=== PATIENT | female | born 2000 | race Caucasian/White ===

== ENCOUNTER 2018-01-10 15:12 | Emergency (ER) | payer BC, SELFPAY ==
[2018-01-10 15:20] VITALS: BP 97/62; PULSE 98; RESP 14; TEMP 37.1; O2SAT 99
--- NOTE | 2018-01-10 15:47 | ED.GENADUL_ITS ---
Disposition Clinical Impression: Injected eye, left, Bacterial conjunctivitis of left eye Disposition: HOME Condition: Stable Instructions: Conjunctivitis (ED) Additional Instructions: Continue to use erythromycin in the right eye. Hold on any further use of erythromycin in your left eye. Continue to flush the left eye with water and apply cool compresses over eye several times daily. You should receive a call from care management regarding follow-up with [facility] within the next week. Return to the emergency department with any worsening or new concerning symptoms. Medical Decision Making - Medical Decision Making 17-year-old female with recent diagnosis of bacterial conjunctivitis on erythromycin who presents for worsening of left eye symptoms since yesterday. She admits to near resolution of symptoms in the right eye. She has been placing erythromycin ointment in both eyes. Eye exam notes right eye to be clear without injection, discharge or eyelid edema or erythema. Left eye is noted to have significant injection, tearing, white discharge as well as mild to moderate upper and lower edema, erythema and scaling. Slit- lamp exam on left was negative for pus or blood or foreign body. She denies any injury to the eye or foreign body sensation so will hold on fluorscein stain. I discussed with patient as she has a history of eczema, there is a consideration of a dermatitis of her eyelid causing her symptoms. However this does not explain the worsening injection of the eye. I recommend that she stop the erythromycin ointment in her left eye. Will flush the left eye with a Patric's lens with 1 L normal saline. I also discussed the possibility of iritis, or worsening bacterial conjunctivitis. Will have patient follow-up with [facility] early this week for reevaluation and return here if worse. 1650: Patient tolerated Patric's lens and saline and she feels slightly better. She states she feels good to go home. Patient instructed to continue flushing with water and place cool compress over eye several times daily. Will place patient on care management list to arrange for follow-up appointment with [facility] early this week. Instructed to return if any concerns. History of Present Illness - General Chief complaint: EyeProblem Stated complaint: EYE PROBLEM Time Seen by Provider: 01/10/18 15:13 Source: patient Mode of arrival: ambulatory Limitations: no limitations - History of Present Illness Initial comments: Patient is a 17-year-old female presents to the ER with complaint of recent diagnosis of bacterial conjunctivitis in both eyes, now with improvement in right eye but worsening in left eye. She saw her primary care doctor 2 days ago and given erythromycin ointment which she has been using with complete relief in her right eye and worsening of redness, pain, irritation and eyelid redness and swelling since yesterday. She has been using the erythromycin ointment in both eyes as directed. She denies any new injury. She denies blurry vision. She denies headache or dizziness. - Related Data Hydroxyzine HCl 25 mg PO DAILY #60 tab 02/17/13 Triamcinolone Acetonide 1 liliana TP BID #15 gm 12/13/16 Etonogestrel [Nexplanon] 68 mg SQ ONCE #1 implant 01/03/17 Dupilumab [Dupixent] 300 mg SQ ONCE #2 syringe 10/22/17 Erythromycin Base [Erythromycin] 0.5 inch OU TID #1 tube 01/08/18 Tacrolimus [Protopic 0.03%] 30 gm TP 01/10/18 Allergies Allergy/AdvReac Type Severity Reaction Status Date / Time shellfish derived Allergy Unknown Unverified 01/10/18 15:35 No Known Drug Allergies Allergy Unverified 01/10/18 15:35 dust mites Allergy Itching, Uncoded 01/10/18 15:35 sneezing Review of Systems Constitutional: denies: chills, fever Eyes: eye pain, eye discharge. denies: vision change ENT: denies: ear pain, throat pain, dental pain Respiratory: denies: cough, shortness of breath Cardiovascular: denies: chest pain, dyspnea on exertion Gastrointestinal: denies: abdominal pain, nausea, vomiting Genitourinary: denies: urgency, dysuria, frequency Musculoskeletal: denies: back pain Skin: denies: rash, lesions Neurological: denies: headache, weakness, numbness Past Medical History - Past Medical History eczema Surgical history: no surgical history - Social History Smoking status: never smoker Alcohol use: none Drug use: none General Exam - General Limitations: no limitations General appearance: alert, in no apparent distress - Eye Eye exam: Present: PERRL, EOMI, other (Left eye conjunctival injection. Left upper and lower eyelid with edema, erythema, scaling. White discharge in left eye noted. No foreign body noted with everting left upper eyelid. No blood or pus noted in anterior chamber with slit-lamp exam. Right eye without injection , discharge or eyelid edema or erythema.) - ENT ENT exam: Present: mucous membranes moist - Respiratory Respiratory exam: Absent: respiratory distress - Cardiovascular Cardiovascular Exam: Present: regular rate - Neurological Exam Neurological exam: Present: alert, oriented X3 - Psychiatric Psychiatric exam: Present: normal affect - Skin Skin exam: Present: warm, dry, intact Course Vital Signs - 24 hr 01/10/18 15:20 Temperature 98.8 F Pulse 98 H Respiratory 14 Rate Blood Pressure 97/62 Pulse Oximetry 99
[2018-01-10 17:05] VITALS: BP 116/81; PULSE 87; RESP 16; O2SAT 98
--- NOTE | 2018-01-12 10:19 | CMPROGNOTE_ITS ---
Care Management Progress Note 01/12-Dr. Veronica requested assistance with a [facility] Emergency Department appt in one week for conjunctivitis, infection. Referral, demographics, and provider note faxed to [facility] this am.
== END 2018-01-10 17:15 | disposition home or self-care (01) ==
PROVIDERS: Emergency Provider Physician Assistant; PCP Pediatrics
DX: H10.022 Other mucopurulent conjunctivitis, left eye (principal); H57.8 Other specified disorders of eye and adnexa
CPT/HCPCS: 99284

== ENCOUNTER 2018-11-24 23:56 | Emergency (ER) | payer BC, SELFPAY ==
[2018-11-25 00:01] VITALS: BP 127/87; PULSE 101; RESP 20; TEMP 36.8; O2SAT 99
--- NOTE | 2018-11-25 00:20 | ED.GENADUL_ITS ---
Discharge Plan Disposition Patient Disposition: HOME Condition: Stable Discharge Details Chief Complaint: Abd Prob Clinical Impression: Abdominal pain Primary Care Provider: Abbie Goldberg V ED Provider: Jona Wright Home Meds and New Rx's Prescriptions: No Action hydroxyzine HCl 10 MG tablet 25 mg PO DAILY Qty: 60 RF: 3 Nexplanon 68 MG implant 68 mg SQ ONCE Qty: 1 RF: 0 Dupixent 300 MG/2 ML syringe 300 mg SQ ONCE Qty: 2 RF: 0 tacrolimus [Protopic] 30 GM ointment 30 gm Topical RF: 0 Discharge Instructions Additional Instructions: your cat scan did not show any concerning findings take the zofran (ondansetron) as needed every 6 hours for nausea/vomit if symptoms continue in a week see your primary care provider if you feel you are becoming more ill, have severe worsening pain or persistent vomit return to the emergency department Stand Alone Forms: Work Release Medical Decision Making 17 yo female with hx of eczema, no prior surgeries, comes in with abdominal pain. She states for a few days she has had no appetite and general abdominal discomfort and tonight had severe pain in the right lower abdomen. Denies vomit but has had nausea. she has pain in the rlq with guarding. no vaginal bleeding or d/c. will obtain lab work and ct imaging to eval for appendicitis, and also ovarian cyst. labs and imaging unremarkable, her pain is significantly better and only has mild pain now, tolerating PO. Will d/c home and return precautions given Differential Diagnosis ovarian cyst, appendicitis Imaging Data Radiologic Study: Attestation: I personally reviewed and interpreted this imaging study as follows: Imaging: CT Scan Radiologist's impression: no acute findings Lab Data Lab results reviewed: Yes I reviewed the patient's lab results. HPI General Mode of arrival: ambulatory . Date/Time Provider Initiated Documentation: 11/24/18 23:56 . Limitations to Documentation: no limitations . Information obtained by: patient . History of Present Illness 17 year old F presents to the emergency department with the chief complaint of abdominal pain, described as moderate, Quality is described as stabbing, and is localized to the abdomen. Patient reports no radiation. Patient started experiencing this hour(s) (5) and it has been constant. No relieving factors improve symptom(s), No exacerbating factors reported . Patient notes nausea/vomiting. Patient did receive the following treatments prior to arrival, none Related Data Home Medications Medication Instructions Recorded Confirmed hydroxyzine HCl 25 mg PO DAILY #60 tab 02/17/13 11/25/18 Nexplanon 68 mg SQ ONCE #1 implant 01/03/17 11/25/18 Dupixent 300 mg SQ ONCE #2 syringe 10/22/17 11/25/18 tacrolimus [Protopic] 30 gm TOPICAL 01/10/18 05/22/18 Allergies Allergy/AdvReac Type Severity Reaction Status Date / Time shellfish derived Allergy Unknown Unverified 11/25/18 00:04 No Known Drug Allergies Allergy Unverified 11/25/18 00:04 dust mites Allergy Itching, Uncoded 11/25/18 00:04 sneezing General Stated Complaint: Abd Prob JASMYNE: 3 Review of Systems Review of Systems All systems reviewed & are unremarkable except as noted in HPI and below Constitutional Denies chills, Denies fever(s) and Denies weakness Cardiovascular Denies chest pain and Denies dyspnea Respiratory Denies dyspnea Gastrointestinal Denies nausea Integumentary/Breasts Denies rash Neurologic Denies weakness PFSH Medical History Eczema Sty, external Surgical History Tooth extraction Family History Grandparent Essential hypertension Personal history of malignant neoplasm Hyperlipidemia Social History Smoking/Tobacco Use Status: Never Drug use: Never Substance use type: does not use Do you feel safe in your relationship?: Yes Exam Const General: no acute distress Orientation: alert HENMT Head: normal to inspection Ears: external ears normal General nose exam: external nose normal Mouth: moist mucous membranes Eyes General: appearance normal, both eyes and all related structures Neck Neck: normal visual inspection Resp Effort & Inspection: normal respiratory effort and able to speak in complete sentences Cardio Rate: regular rate GI Palpation: soft Skin General skin exam: no rashes or lesions noted Neuro General: alert and oriented x3 Extrem General: normal to inspection Psych Mental Status: mental status grossly normal Course Vital Signs Temperature 36.8 C 11/25/18 00:01 Pulse 101 H 11/25/18 00:01 Respiratory Rate 20 11/25/18 00:01 Blood Pressure 127/87 11/25/18 00:01 Pulse Oximetry 99 11/25/18 00:01 Temperature 36.8 C 11/25/18 00:01 Temperature Source Temporal Artery Scan 11/25/18 00:01 Pulse 101 H 11/25/18 00:01 Respiratory Rate 20 11/25/18 00:01 Blood Pressure 127/87 11/25/18 00:01 Blood Pressure Position Sitting 11/25/18 00:01 Pulse Oximetry 99 11/25/18 00:01 Oxygen Delivery Method Room Air 11/25/18 00:01 Oxygen Flow Rate 0 11/25/18 00:01 Pain Level 7 11/25/18 00:01 Lab/Test Results Lab/Test Results: POC- Test(urine) Negative
[2018-11-25] MEDS: Normal Saline Flush 10 ML SYR IVP (00:25)
[2018-11-25] MEDS: Normal Saline 1,000 ML 1000 ML IV (00:25)
[2018-11-25 00:31] LABS: Bilirubin Negative (Negative); Blood Trace-lysed (Negative); Clarity Clear; Glucose Negative (Negative); Ketones Negative (Negative); Leukocyte Esterase Negative (Negative); Nitrite Negative (Negative); Specific Gravity 1.015 (1.005-1.025); Urobilinogen 0.2 EU/dL (Up TO 0.2)
[2018-11-25 00:36] LABS: Abs Immature Grans 0.02 k/cumm (0.0-0.09); Absolute Basophil Count 0.06 k/cumm (0.0-0.2); Absolute Eosinophil Count 0.35 k/cumm (0.0-0.7); Absolute Lymphocyte Count 2.78 k/cumm (1.2-3.4); Absolute Monocyte Count 0.79 k/cumm (0.11-0.7); Absolute Neutrophil Count 4.95 k/cumm (1.2-6.7); Basophils % 0.7; Eosinophils % 3.9; HCT 44.5 % (36.0-46.0); HGB 15.7 g/dL (12.0-15.5); Immature Grans % 0.2; Lymphocytes % 31.1; Mean Corp. HGB Concentration 35.3 g/dL (32.0-36.0); Mean Corpuscular Hemoglobin 31.4 pg (27.0-33.0); Mean Platelet Volume 11.1 fL (8.0-11.0); Monocytes % 8.8; Neutrophils % 55.3; Platelet Count 234 x1000/uL (130-400); White Blood Cell Count 8.95 k/cumm (4.4-10.8)
[2018-11-25] MEDS: Ondansetron 4 MG/2 ML VIAL IVP (00:36)
[2018-11-25] MEDS: Ketorolac 15 MG/ML VIAL IVP (00:36)
[2018-11-25 00:43] LABS: Bacteria Negative HPF (Negative); C & S Indicated? No; Casts Negative LPF (Negative); Crystals Moderate Amorphous HPF (Negative); Epithelial Cells Few HPF (Negative); Mucus Negative (Negative); RBC Negative (0-2); WBC 0-2 HPF (0-5)
[2018-11-25 00:50] LABS: ALT 26 U/L (12-78); AST 17 U/L (15-37); Albumin 4.3 g/dL (3.4-5.0); Alkaline Phosphatase 102 U/L (46-116); Anion Gap 8.8 mmol/L (3-11); BUN 13 mg/dL (7-18); Bilirubin, Total 0.6 mg/dL (0.2-1.0); CO2 29.2 mmol/L (21.0-32.0); CREATININE 0.69 mg/dL (0.55-1.02); Calcium 9.4 mg/dL (8.5-10.1); Chloride 104 mmol/L (98-107); Glucose 107 mg/dL (70-100); Lipase 94 U/L (73-393); Potassium 3.8 mmol/L (3.5-5.1); Sodium 142 mmol/L (136-145); Total Protein 7.6 g/dL (6.4-8.2)
[2018-11-25 02:14] VITALS: BP 106/59; PULSE 86; RESP 16; TEMP 36.7; O2SAT 98
[2018-11-25] MEDS: Omnipaque 350 MG/ML 100 ML BTL IJ (02:14)
--- NOTE | 2018-11-25 02:15 | DI.CT_ITS ---
SYMPTOM/DIAGNOSIS: RT LOW ABD PAIN ABDOMEN AND PELVIC CT: The study was carried out with an intravenous administration of 77 cc's of Omnipaque 350. The liver is unremarkable. The gallbladder is intact. There are no stones or ductal dilatation. The pancreas, spleen, adrenals and kidneys are normal. There is no evidence of obstruction or localized bowel wall thickening. The appendix is not identified. There is nothing specific to suggest an acute appendix, if there is further specific clinical question in this regard, then a repeat examination with oral contrast could be obtained. The bladder is unremarkable. The reproductive organs as visualized are unremarkable. There is no evidence of free air or free fluid in the intraperitoneal space. No acute bony abnormality is seen. The soft tissues are unremarkable. There is no aortic aneurysm. There is no mass or lymphadenopathy. SUMMARY: No acute abnormality is demonstrated.
--- NOTE | 2018-11-25 03:28 | DI.VRAD_ITS ---
EXAM: CT Abdomen and Pelvis With Contrast EXAM DATE/TIME: 11/25/2018 12:14 AM CLINICAL HISTORY: 17 years old, female; Abdominal pain; Localized; Right lower quadrant (rlq); Patient HX: Rlq pain increasing over a couple days TECHNIQUE: Imaging protocol: Axial computed tomography images of the abdomen and pelvis with intravenous contrast. Coronal and sagittal reformatted images were created and reviewed. Contrast material: OMNIPAQUE 350; Contrast volume: 77 ml; Contrast route: IV; COMPARISON: CT ABD PELVIS WITH CONTRAST 02/05/2014 2:11 PM FINDINGS: ABDOMEN: Liver: Normal. No mass. Gallbladder and bile ducts: Normal. No calcified stones. No ductal dilation. Pancreas: Normal. No ductal dilation. Spleen: Normal. No splenomegaly. Adrenals: Normal. No mass. Kidneys and ureters: Normal. No hydronephrosis. Stomach and bowel: Normal. No obstruction. No mucosal thickening. Appendix: Appendix is not visualized with certainty with evaluation limited due to lack of oral contrast. PELVIS: Bladder: Unremarkable as visualized. Reproductive: Unremarkable as visualized. ABDOMEN and PELVIS: Intraperitoneal space: Normal. No free air. No significant fluid collection. Bones/joints: No acute fracture. No dislocation. Soft tissues: Unremarkable. Vasculature: Normal. No abdominal aortic aneurysm. Lymph nodes: Normal. No enlarged lymph nodes. IMPRESSION: No acute findings. Dictated and Authenticated by: Jona Suarez MD. Ordering:GAMALIEL Tenorio MD
[2018-11-25 03:38] VITALS: BP 103/57; PULSE 92; RESP 18; TEMP 36.6; O2SAT 97
== END 2018-11-25 03:35 | disposition home or self-care (01) ==
PROVIDERS: Emergency Provider Emergency Medicine; PCP Pediatrics
DX: R10.31 Right lower quadrant pain (principal)
CPT/HCPCS: 36415; 80053; 83690; 96361; 96374; 96375; 99285; 74177; 81003; 81015; 85025; 99284; J1885; J2405; J3490

== ENCOUNTER 2018-12-08 20:02 | Outpatient (REF) | payer BC, SELFPAY ==
[2018-12-10 12:37] LABS: Chlamydia Result Negative; GC Result Negative; Specimen Description URINE
== END 2018-12-08 20:22 ==
LOC: LBN 20:02
PROVIDERS: PCP Pediatrics; Visit Provider Registered Nurse
DX: R10.9 Unspecified abdominal pain (principal); Z11.3 Encounter for screening for infections with a predominantly sexual mode of transmission
CPT/HCPCS: 87491; 87591

== ENCOUNTER 2018-12-24 15:31 | Outpatient (CLI) | payer BC, SELFPAY ==
[2018-12-24 16:48] LABS: TSH (W/Ref FT4) 0.54 uIU/mL (0.358-3.74)
[2018-12-24 17:14] LABS: C-Reactive Protein 0.06 mg/dL (0.0-0.3)
== END 2018-12-24 15:51 ==
PROVIDERS: PCP Pediatrics; Visit Provider Nurse Practitioner Pediatrics
DX: R10.9 Unspecified abdominal pain (principal); R11.0 Nausea
CPT/HCPCS: 36415; 84443; 86140

== ENCOUNTER 2019-08-17 11:17 | Outpatient (CLI) | payer BC, SELFPAY | END 2019-08-17 11:37 | PROVIDERS: PCP Pediatrics; Visit Provider Nurse Practitioner Pediatrics | DX: F41.9 Anxiety disorder, unspecified (principal); Z79.899 Other long term (current) drug therapy | CPT/HCPCS: 93005; 93010 ==